=== PATIENT | male | born 1945 | race African-American/Black ===

== ENCOUNTER 2016-05-18 12:47 | Observation (INO) | payer OTHER ==
[2016-05-18] MEDS ORDERED: NS 1,000 ML IV ONE (12:51)
[2016-05-18] MEDS ORDERED: DIAZEPAM 5 MG TAB PO ONE (12:51)
[2016-05-18] MEDS ORDERED: diphenhydrAMINE 25 MG CAP PO ONE (12:51)
[2016-05-18] MEDS ORDERED: BACITRACIN IRRIGATION/NS 50,000 UNITS/1,000 ML BTL IRR ONE (12:51)
[2016-05-18] MEDS ORDERED: VANCOMYCIN HCL/NORMAL SALINE 250 ML IV ONE (12:53)
--- NOTE | 2016-05-18 13:08 | CPEKG ---
Heart Rate: 44 RR Interval: 1364 QRSD Interval: 90 QT Interval: 444 QTC Interval: 380 QRS [place]: -56 T Wave [place]: 46 EKG Severity - ABNORMAL ECG - EKG Impression: JUNCTIONAL ESCAPE RHYTHM EKG Impression: LEFT ANTERIOR FASCICULAR BLOCK EKG Impression: BORDERLINE T ABNORMALITIES, INFERIOR LEADS Electronically Signed By: Nagi Ryder 19-May-2016 09:26:46
[2016-05-18 13:22] LABS: % IMMATURE GRANULYOCYTES 0.6 % (0.0-1.1); ABSOLUTE IMMATURE GRANULOCYTES 0.05 10^3/uL (0.00-0.10); ADD DIFF? NO; ADD MORPH? NO; ADD SCAN? NO; ATYPICAL LYMPHOCYTE FLAG 90 (0-99); FRAGMENT RBC FLAG 0 (0-99); HEMATOCRIT 48.4 % (40.0-51.0); HEMOGLOBIN 15.9 g/dL (13.7-17.5); LEFT SHIFT FLG 0 (0-99); LIPEMIA HEMOLYSIS FLAG 80 (0-99); MEAN CELL HEMOGLOBIN 30.9 pg (27.9-34.1); MEAN CELL HEMOGLOBIN CONCENTR. 32.9 g/dL (32.4-36.7); MEAN CELL VOLUME 94.2 fL (81.5-99.8); MEAN PLATELET VOLUME 10.9 fL (8.7-11.7); PLATELET CLUMPS FLAG 10 (0-99); PLATELET COUNT 190 10^3/uL (150-400); RED BLOOD CELL COUNT 5.14 10^6/uL (4.40-6.38); RED CELL DISTRIBUTION WIDTH 13.1 % (11.5-15.2)
[2016-05-18 13:31] LABS: INR 0.98 (0.83-1.16); PROTIME(PATIENT) 12.9 SEC (12.0-15.0)
[2016-05-18 13:33] LABS: ANION GAP 10 mEq/L (8-16); CALCIUM 9.2 mg/dL (8.5-10.4); CARBON DIOXIDE 27 mEq/l (22-31); CHLORIDE 102 mEq/L (97-110); CREATININE 0.9 mg/dL (0.7-1.3); GLOMERULAR FILTRATION RATE > 60; GLUCOSE 127 mg/dL (70-100); POTASSIUM 4.4 mEq/L (3.5-5.2); SODIUM 139 mEq/L (134-144)
[2016-05-18] MEDS ORDERED: BUPIVACAINE 0.5% 30 ML SDV ONE (15:42)
[2016-05-18] MEDS ORDERED: LIDOCAINE 1% 30 ML SDV ONE (15:42)
[2016-05-18] MEDS ORDERED: MIDAZOLAM 2 MG/2 ML VIAL ONE ×2 (15:42→16:55)
[2016-05-18] MEDS ORDERED: fentaNYL 100 MCG/2 ML INJ ONE ×2 (15:42→16:57)
[2016-05-18] MEDS ORDERED: LIDO/EPI 1% **for epidural** 30 ML SDV ONE (15:42)
[2016-05-18] MEDS ORDERED: IOPAMIDOL (ISOVUE-300) 150 ML BTL IV ONE (15:44)
--- NOTE | 2016-05-18 16:41 | SUROPNOTE ---
[facility] Operative Report - Surgery Date of Procedure: 05/18/16 Indication: This patient is a 70 year old man, with a history of atrial flutter , presenting with sick sinus syndrome and episodes of sinus bradycardia, as low as 30 bpm. In addition, the patient had one episode of complete heart block documented on Holter monitor. Placement of permanent dual chamber pacemaker indicated secondary to sick sinus syndrome and complete heart block. Procedure Performed: 1. Placement of a dual chamber permanent pacemaker Description of procedure: Risks, benefits, and alternatives were discussed in detail. Informed consent was obtained. We discussed various options for devices. Patient was brought to the catheterization laboratory where a time out was performed. Left subclavian venography was performed via left arm IV, showing anatomically normal and widely patent left subclavian vein. Left anterior chest was sterilely prepped and draped. Patient received Vancomycin 1.5g intravenously. 2% lidocaine and 0.5 % Marcaine were utilized for local anesthetic. A skin incision was made with a # 10 blade and carried down to pectoralis fascia using Bovie, and bleeders were cauterized. Site for the pocket was anesthetized with lidocaine with epinephrine. The pocket was created by blunt dissection and packed with single Ray-Albertina antibiotic-soaked gauze. The patient was placed in Trendelenburg position. Then, under fluoroscopic guidance, the subclavian vein was punctured with an 18-gauge thin wall needle and cannulated with 0.035 J-tip guidewire. An 8-[place] peel-away introducing sheath was placed through which a second 0.035 J- tip guidewire was placed. Sheath was removed and flushed, placed back over the original guidewire, establishing dual guidewire access. Then, through the sheath , a single coil active fixation right ventricular pacing lead was placed. This was positioned in the right ventricular apex and secured in place with the active fixation helix. There was adequate pacing and sensing, and the lead was sutured in place with a suture sleeve and two separate 0 Ethibond sutures. Then , over the second guidewire, a 6-[place] peel-away introducing sheath was placed through which the active fixation right atrial lead was passed. Using a J curved stylette, this was placed in the area of the right atrial appendage and secured in place with the active fixation helix. There was adequate pacing and sensing, and the lead was suture in place with a suture sleeve and two separate 0 Ethibond sutures. Ray-Albertina gauze was moved from the pocket. The pocket was copiously irrigated with antibiotic solution and coated with D-Stat liquid hemostat. Any sites of oozing were cauterized. Pacemaker generator was brought to the field, leads were connected to proper head ports, and all set screws were tightened. Generator was placed in the pocket with the leads posterior, and secured in place with a single 0 Ethibond suture. The pocket was then closed with interrupted layers of 2-0 and 3-0 Vicryl suture and running 4-0 subcuticular Stratafix suture. Benzoin, Steri-Strips, and Opsite were placed. Hardware Implanted: Pacemaker is a Biotronik, Eluna 8 DR-T ProMRI, model 636960, serial [id number]. Right ventricular lead is a Biotronik Solia S 53, model 460262, serial [id number] , threshold 0.6V @ 0.40ms, R wave sensing 6.2mV, impedance 604Ohms. Right atrial lead is a Biotronik Solia S 45, model 485019, serial [id number], threshold 1.4V @ 0.40ms, P wave sensing 2.5mV, impedance 448Ohms. Portions of this report were documented by a center medical specialist. I have reviewed this report and agree with the documentation. Report scribed for Dr. Nghia Wilson. Report scribed by Nica Cordova.
[2016-05-18] MEDS ORDERED: HYDROCODONE/APAP 5/325 TAB PO PRN (17:41)
[2016-05-18] MEDS ORDERED: IBUPROFEN 200 MG TAB PO PRN (17:43)
--- NOTE | 2016-05-18 18:22 | CPEKG ---
Heart Rate: 60 RR Interval: 1000 P-R Interval: 232 QRSD Interval: 90 QT Interval: 428 QTC Interval: 428 QRS [place]: -61 T Wave [place]: 62 EKG Severity - ABNORMAL ECG - EKG Impression: ATRIAL-PACED RHYTHM EKG Impression: LEFT ANTERIOR FASCICULAR BLOCK EKG Impression: ATRIAL PACING IS NEW IN COMPARISON TO PRIOR ECG (JUNCTIONAL) Electronically Signed By: Nagi Ryder 19-May-2016 09:27:07
[2016-05-18] MEDS: OXYCODONE/APAP 5/325 TAB PO PRN (20:27)
[2016-05-18] MEDS ORDERED: NON-FORMULARY NEW DRUG (Simvastatin [Zocor] 40 MG) PO SCH (21:00)
[2016-05-18] MEDS ORDERED: PIOGLITAZONE HCL 15 MG TAB PO SCH (21:00)
[2016-05-18] MEDS ORDERED: ATORVASTATIN CALCIUM 20 MG TAB PO SCH (21:00)
[2016-05-18] MEDS ORDERED: glyBURIDE 5 MG TAB PO SCH (21:00)
[2016-05-19 04:32] LABS: % IMMATURE GRANULYOCYTES 0.5 % (0.0-1.1); ABSOLUTE IMMATURE GRANULOCYTES 0.03 10^3/uL (0.00-0.10); ADD DIFF? NO; ADD MORPH? NO; ADD SCAN? NO; ATYPICAL LYMPHOCYTE FLAG 20 (0-99); FRAGMENT RBC FLAG 0 (0-99); HEMATOCRIT 44.7 % (40.0-51.0); HEMOGLOBIN 14.7 g/dL (13.7-17.5); LEFT SHIFT FLG 0 (0-99); LIPEMIA HEMOLYSIS FLAG 80 (0-99); MEAN CELL HEMOGLOBIN 31.2 pg (27.9-34.1); MEAN CELL HEMOGLOBIN CONCENTR. 32.9 g/dL (32.4-36.7); MEAN CELL VOLUME 94.9 fL (81.5-99.8); MEAN PLATELET VOLUME 10.8 fL (8.7-11.7); PLATELET CLUMPS FLAG 0 (0-99); PLATELET COUNT 165 10^3/uL (150-400); RED BLOOD CELL COUNT 4.71 10^6/uL (4.40-6.38)
[2016-05-19 05:09] LABS: ANION GAP 8 mEq/L (8-16); CALCIUM 8.7 mg/dL (8.5-10.4); CARBON DIOXIDE 27 mEq/l (22-31); CHLORIDE 104 mEq/L (97-110); GLOMERULAR FILTRATION RATE > 60; GLUCOSE 82 mg/dL (70-100); POTASSIUM 4.5 mEq/L (3.5-5.2); SODIUM 139 mEq/L (134-144)
[2016-05-19] MEDS: OXYCODONE/APAP 5/325 TAB PO PRN (06:40)
[2016-05-19] MEDS ORDERED: TELMISARTAN 40 MG TAB PO SCH (08:00)
[2016-05-19] MEDS ORDERED: AMLODIPINE PO SCH (09:00)
[2016-05-19] MEDS ORDERED: amLODIPine BESYLATE 5 MG TAB PO SCH (09:00)
[2016-05-19] MEDS ORDERED: glyBURIDE 2.5 MG TAB PO SCH (09:00)
[2016-05-19] MEDS ORDERED: TELMISARTAN PO SCH (09:00)
--- NOTE | 2016-05-19 09:29 | CPEKG ---
Heart Rate: 60 RR Interval: 1000 P-R Interval: 240 QRSD Interval: 86 QT Interval: 412 QTC Interval: 412 QRS [place]: -68 T Wave [place]: 69 EKG Severity - ABNORMAL ECG - EKG Impression: ATRIAL-PACED RHYTHM EKG Impression: LEFT ANTERIOR FASCICULAR BLOCK Electronically Signed By: Nagi Ryder 19-May-2016 16:45:54
--- NOTE | 2016-05-19 10:27 | SOAPPROG ---
SOAP Progress Note Assessment/Plan: Assessment: Cardiology ([place]) 1. S/p dual chamber PPM implantation. Pacer is functioning normally. AV paced this am at 64 bpm. He received vanco iv prior to procedure which he says caused an itchy scalp. Otherwise procedure was uncomplicated. 2. Complete heart block / Mob[place] II. 3. History of paroxysmal atrial flutter. On Eliquis anticoagulation. 4. II/ systolic ejection murmur of unknown etiology. 5. HTN. 6. Hyperlipidemia. 7. Type 2 DM. 8. GRUPO treated w/ CPAP. 9. History of PCN allergy. Plan: 1. Rx for percocet #10, no RF. 2. Continue Eliquis tonight. 3. Continue all other home medications as directed. 4. CXR pending. 5. Discharge planned for later today. 6. Outpatient echocardiogram at soonest convenience. 05/19/16 10:34 Subjective: Patient has had moderate incisional pain overnight that has been controlled w/ Percocet. He denies any other symptoms. Left pectoral incision is well- approximated without any signs of inflammation or infection. Objective: Vital Signs Temp Pulse Resp BP Pulse Ox 37.2 C 60 16 131/75 H 98 05/19/16 07:11 05/19/16 07:11 05/19/16 07:11 05/19/16 07:11 05/19/16 07:11 Laboratory Results 05/19/16 03:57 05/19/16 03:57 05/18/16 05/19/16 05/20/16 05:59 05:59 05:59 Intake Total 260 Output Total 275 Balance -15 PT 12.9 SEC (12.0-15.0) 05/18/16 13:10 INR 0.98 (0.83-1.16) 05/18/16 13:10 - Time Spent With Patient Time Spent With Patient: 50 minutes spent coordinating care, physical exam, and documentation. - Pending Discharge Pending Discharge Within 24 Hours: Yes Pending Discharge Date: 05/20/16 Pending Discharge Time: 11:00 Physical Exam - Physical Exam General Appearance: WD/WN, alert, no apparent distress Respiratory: chest non-tender, lungs clear, normal breath sounds Cardiac/Chest: normal peripheral pulses, regular rate, rhythm, systolic murmur ( II/ ELISEO best heard in upper sternal borders) Peripheral Pulses: 2+: dorsalis-pedis (R), dorsalis-pedis (L) Abdomen: normal bowel sounds, non-tender, soft Extremities: No swelling Neuro/Psych: no motor/sensory deficits, alert, normal mood/affect, oriented x 3 ICD10 Worksheet Patient Problems: Problems Problem Status Onset Complete heart block Acute Status post cardiac pacemaker procedure Acute
[2016-05-19 11:19] VITALS: BP 129/72; PULSE 61; RESP 19; TEMP 98.1; O2SAT 99
== END 2016-05-19 14:06 | disposition home or self-care (01) ==
LOC: FCATH 12:47 → F2W 16:56 → UNDODISOB 05-19 13:01
PROVIDERS: ADMIT Internal Medicine Interventional Cardiology; ATTEND Internal Medicine Interventional Cardiology
PROC: 02HK3JZ Insertion of Pacemaker Lead into Right Ventricle, Percutaneous Approach (ICD-10-PCS; principal; 2016-05-18)
PROC: 02H63JZ Insertion of Pacemaker Lead into Right Atrium, Percutaneous Approach (ICD-10-PCS; principal; 2016-05-18)
PROC: 0JH806Z Insertion of Pacemaker, Dual Chamber into Abdomen Subcutaneous Tissue and Fascia, Open Approach (ICD-10-PCS; principal; 2016-05-18)
DX: I49.5 Sick sinus syndrome (principal); I44.2 Atrioventricular block, complete; I48.92 Unspecified atrial flutter; I48.91 Unspecified atrial fibrillation; I51.7 Cardiomegaly; I10 Essential (primary) hypertension; E78.5 Hyperlipidemia, unspecified; E11.9 Type 2 diabetes mellitus without complications; G47.33 Obstructive sleep apnea (adult) (pediatric); Z79.01 Long term (current) use of anticoagulants; Z88.0 Allergy status to penicillin
CPT/HCPCS: 33208; 71010; 71020; 93005; A4649; C1785; C1898; J1200; J2250; J3010; J3370; Q9967

== ENCOUNTER → 2016-11-04 | Outpatient (CLI) | payer OTHER | LOC: FIMAGING 17:27 | PROVIDERS: ATTEND Internal Medicine | DX: M25.461 Effusion, right knee (principal) ==

== ENCOUNTER → 2016-11-05 | Outpatient (CLI) | payer OTHER ==
[~2016-11-05] MED LIST: GADOBUTROL 10 ML VIAL IVP ONE
== END ==
LOC: FIMAGING 14:28
PROVIDERS: ATTEND Internal Medicine
DX: M79.651 Pain in right thigh (principal)
CPT/HCPCS: 73721; A9585

== ENCOUNTER → 2016-11-12 | Outpatient (CLI) | payer OTHER ==
[~2016-11-12] MED LIST changes: -GADOBUTROL 10 ML VIAL IVP ONE; +IOPAMIDOL (ISOVUE 370) 100 ML BTL IV ONE; +IOPAMIDOL (ISOVUE-300) 100 ML BTL ONE
== END ==
LOC: FIMAGING 09:42
PROVIDERS: ATTEND Internal Medicine
DX: I70.0 Atherosclerosis of aorta (principal); M79.604 Pain in right leg
CPT/HCPCS: 74177; Q9967

== ENCOUNTER 2017-06-15 11:17 | Observation (INO) | payer OTHER ==
[2017-06-15] MEDS ORDERED: BACITRACIN IRRIGATION/NS 50,000 UNITS/1,000 ML BTL IRR ONE (11:21)
[2017-06-15] MEDS ORDERED: NS 1,000 ML IV ONE (11:21)
--- NOTE | 2017-06-15 12:03 | CPEKG ---
Heart Rate: 62 RR Interval: 968 P-R Interval: 316 QRSD Interval: 142 QT Interval: 468 QTC Interval: 476 QRS [place]: -77 T Wave [place]: 94 EKG Severity - ABNORMAL ECG - EKG Impression: ATRIAL-VENTRICULAR DUAL-PACED COMPLEXES (intermittent A capture) EKG Impression: FIRST DEGREE AV BLOCK Electronically Signed By: Jun Chawla 15-Jun-2017 14:24:00
[2017-06-15 12:04] LABS: PLATELET COUNT 172 10^3/uL (150-400)
[2017-06-15 12:14] LABS: INR 0.94 (0.83-1.16); PROTIME(PATIENT) 12.8 SEC (12.0-15.0)
[2017-06-15] MEDS ORDERED: VANCOMYCIN 1 GM in NS 250 ML IV ONE (13:00)
[2017-06-15] MEDS ORDERED: MIDAZOLAM 2 MG/2 ML VIAL ONE (14:07)
[2017-06-15] MEDS ORDERED: fentaNYL 100 MCG/2 ML INJ ONE (14:07)
[2017-06-15] MEDS ORDERED: LIDOCAINE 1% 300 MG/30 ML SDV ONE (14:07)
[2017-06-15] MEDS ORDERED: IOPAMIDOL (ISOVUE-300) 100 ML BTL ONE (14:08)
[2017-06-15] MEDS ORDERED: BUPIVACAINE 0.5% 30 ML SDV ONE (14:08)
--- NOTE | 2017-06-15 14:21 | PDPROPOC ---
Sedation Plan of Care Sedation Plan of Care: vital signs stable, mental status noted, patient educated of risks, benefits, alternatives, patient can tolerate sedation ASA Classification: ASA 2 Planned drugs: fentanyl, midazolam Mallampati Score: Class 2 Mallampati Reference Image: Patient passed 3-3-2 rule?: Yes
--- NOTE | 2017-06-15 14:23 | PDGENHP ---
History & Physical Chief Complaint: afib, afl, dislodged ra lead Relevant Physical Exam: s1s2 irreg. cta. ao3 Cardiorespiratory Assessment: ra lead dislodged. plan to remove ra lead and implant new RA lead (AF is paroxysmal)
--- NOTE | 2017-06-15 16:56 | CPEKG ---
Heart Rate: 62 RR Interval: 968 P-R Interval: 258 QRSD Interval: 110 QT Interval: 408 QTC Interval: 415 P [place]: 139 QRS [place]: -51 T Wave [place]: -69 EKG Severity - ABNORMAL ECG - EKG Impression: VENTRICULAR-PACED COMPLEXES EKG Impression: Underlying AFL Electronically Signed By: Jun Chawla 15-Jun-2017 18:00:42
[2017-06-15] MEDS ORDERED: ACETAMINOPHEN 500 MG TAB PO PRN (16:59)
--- NOTE | 2017-06-15 16:59 | EPPROC ---
Electrophysiology Procedure Note: PROCEDURE PERFORMED: 1. Explant of old RA lead 2. Implant of new RA lead INDICATION: RA lead dislodged 9-12 months post initial implant AFL with pauses PROCEDURE NOTE: Patient presented to the cardiac catheterization laboratory in a fasting, post absorptive state . EP RN administered sedation. The left infraclavicular area was prepped and draped in the usual sterile fashion. Lidocaine plus bupivacaine was used for local anesthesia. Left subclavian venography was performed by injection of iodinated contrast into the left antecubital vein. Using a combination of blunt and sharp dissection and electrocautery, the dissection was carried down to the prepectoral fascia. The existing pacemaker pocket was opened. All bleeding was controlled with electrocautery. The pocket was packed with gauze soaked in antibiotic solution. Fluoroscopy was utilized during the entire procedure for venous access and placement of the leads. The RA lead was noted to be dislodged into mid RA. It was freed from subcutaneous tissue and suture sleeve. Active fixation screw was retracted. Lead was easily extracted by simple Extrathoracic axillary vein was accessed using modified Seldinger technique. An active fixation atrial lead was advanced into the right atrial appendage and screwed in place. The peel away sheath was removed. Pacing thresholds, sensing parameters and lead impedances were measured. There was no diaphragmatic stimulation at maximum output. The lead was sutured to the prepectoral fascia with 3 nonabsorbable sutures . The pocket was again inspected for any bleeding. The atrial lead was attached to the pacemaker securely. The pacemaker was inserted into the pocket and secured in place with a nonabsorbable suture. Fluoroscopy was performed in GUERRERO and BENINESE planes to verify right-sided placement of the leads. Also fluoroscopy of the pacemaker pocket was performed. The pacemaker pocket was closed in 3 layers with absorbable monocryl sutures and francisco javier. Appropriate dressing was applied. The patient left the cardiac catheterization laboratory in stable condition. Serial Numbers: 1. Device: Biotronik Eluna 8DRT proMRI SN [id number] 2. Atrial Lead: Biotronik Solia S45 SN [id number] 3. Ventricular Lead: Biotronik Solia S52 SN [id number] Stimulation Thresholds & Impedance Measurements: 1. Atrial Lead AFL P waves 1.3 mV 487 ohm 2. Ventricular Lead R 6.2 mV 0.6 V 0.4 ms 604 ohm [place] Pacing Parameters 1. Pacing mode: DDD-CLS 2. Lower rate: 60ppm 3. Upper tracking rate: 130 ppm 4. Upper sensor rate: 130 ppm Patient Problems: Problems Problem Status Onset Status post cardiac pacemaker procedure Acute Complete heart block Acute
[2017-06-15] MEDS: OXYCODONE/APAP 5/325 TAB PO PRN (21:03)
[2017-06-16] MEDS: OXYCODONE/APAP 5/325 TAB PO PRN (04:10)
[2017-06-16 04:38] LABS: PLATELET COUNT 173 10^3/uL (150-400)
[2017-06-16 07:24] VITALS: BP 119/69
[2017-06-16] MEDS ORDERED: APIXABAN 5 MG TAB PO SCH (09:00)
[2017-06-16] MEDS ORDERED: glyBURIDE 5 MG TAB PO SCH (09:00)
--- NOTE | 2017-06-16 09:10 | CPEKG ---
Heart Rate: 62 RR Interval: 968 P-R Interval: 214 QRSD Interval: 94 QT Interval: 392 QTC Interval: 398 P [place]: 0 QRS [place]: -55 T Wave [place]: -62 EKG Severity - ABNORMAL ECG - EKG Impression: VENTRICULAR-PACED COMPLEXES EKG Impression: LEFT ANTERIOR FASCICULAR BLOCK EKG Impression: NONSPECIFIC T ABNORMALITIES, DIFFUSE LEADS EKG Impression: Atrial flutter Electronically Signed By: Jun Chawla 16-Jun-2017 11:51:03
[2017-06-16] MEDS ORDERED: TELMISARTAN 40 MG TAB PO SCH (09:30)
[2017-06-16] MEDS ORDERED: amLODIPine BESYLATE 5 MG TAB PO SCH (09:30)
--- NOTE | 2017-06-16 10:06 | GDS ---
[f rep st] DISCHARGE SUMMARY DISCHARGE DIAGNOSIS: 1. Right atrial lead dislodgement status post explant of old right atrial lead and implant of a new right atrial lead. 2. Atrioventricular junctional bradycardia, status post pacemaker, Biotronik ,1 year ago. 3. Chronic atrial flutter, currently on Eliquis. 4. Diabetes. 5. Hypertension. 6. Hyperlipidemia. HOSPITAL COURSE: For a detailed H and P, please see prior dictation. Briefly, Julian is a 71-year-ol d male with a history of paroxysmal atrial flutter and symptomatic AV junctional bradycardia status p ost dual-chamber Biotronik pacemaker in 05/2016. He was found to have an abnormal recording indicati ng an atrial lead issue. He then had a chest x-ray, which showed atrial lead dislodgment. Ultimatel y, the patient was admitted to the hospital for elective atrial lead removal and implant of new right atrial lead. This was done by Dr. Jun Chawla on 06/15/2017. The procedure was uncomplicated. The , the patient denied any significant discomfort over his pacer site. He was monitore d on telemetry and remained in atrial flutter. His EKG showed atrial flutter with intermittent ventr icular pacing. His device was interrogated the day of discharge and was working properly. His chest x-ray was negative for pneumothorax and his right atrial lead was well positioned. PHYSICAL EXAMINATION: GENERAL: Patient appears in no acute distress. VITAL SIGNS: Blood pressure 119/69, heart rate 60, oxygen saturation of 93% on room air, afebrile. LUNGS: Clear to auscultation . No wheezes, rhonchi, or crackles auscultated. CARDIAC: Regular rate and rhythm without any signif icant murmurs, rubs, or gallops appreciated. CHEST WALL: His pacer site is clean and intact without any evidence of infection or hematoma. EXTREMITIES: No evidence of edema. DISCHARGE MEDICATIONS: His medications are unchanged except for he will hold metformin for 48 hours postprocedure. He will continue Zocor 40 mg at bedtime. Glyburide 5 mg twice daily, Actos 15 mg at bedtime, telmisartan/amlodipine 80/5 mg daily, metformin 500 mg twice daily. Again, this be held for 48 hours. Celebrex 200 mg daily. Eliquis 5 mg twice daily. PLAN: Julian is currently stable and ready for discharge home. He has been given pacer precautions. He is aware that he is to hold his metformin for 48 hours postprocedure. He is scheduled for a pace r interrogation and wound check on 06/22 at 1 p.m. Greater than 30 minutes was spent coordinating the patient's care today. /[id number]/MODL
[2017-06-16] MEDS ORDERED: NON-FORMULARY NEW DRUG (Simvastatin [Zocor] 40 MG) PO SCH (21:00)
[2017-06-16] MEDS ORDERED: ATORVASTATIN CALCIUM 20 MG TAB PO SCH (21:00)
[2017-06-16] MEDS ORDERED: PIOGLITAZONE HCL 15 MG TAB PO SCH (21:00)
== END 2017-06-16 12:01 | disposition home or self-care (01) ==
LOC: FCATH 11:17 → F2W 16:14
PROVIDERS: ADMIT Internal Medicine Cardiovascular Disease; ATTEND Internal Medicine Cardiovascular Disease
PROC: 02H63MZ Insertion of Cardiac Lead into Right Atrium, Percutaneous Approach (ICD-10-PCS; principal; 2017-06-15)
PROC: 02PA0MZ Removal of Cardiac Lead from Heart, Open Approach (ICD-10-PCS; principal; 2017-06-15)
DX: T82.120A Displacement of cardiac electrode, initial encounter (principal); I48.3 Typical atrial flutter; R00.1 Bradycardia, unspecified; Y71.2 Prosthetic and other implants, materials and accessory cardiovascular devices associated with adverse incidents; I44.4 Left anterior fascicular block; E11.9 Type 2 diabetes mellitus without complications; I10 Essential (primary) hypertension; E78.5 Hyperlipidemia, unspecified; G47.33 Obstructive sleep apnea (adult) (pediatric); Z79.01 Long term (current) use of anticoagulants; Z95.0 Presence of cardiac pacemaker; Z88.0 Allergy status to penicillin
CPT/HCPCS: 33216; 33235; 71045; 71046; 93005; C1898; J2250; J3010; J3370; Q9967

== ENCOUNTER → 2017-11-18 | Outpatient (CLI) | payer OTHER | LOC: BHLMT 13:00 | PROVIDERS: ATTEND Internal Medicine Cardiovascular Disease | DX: R93.1 Abnormal findings on diagnostic imaging of heart and coronary circulation (principal) | CPT/HCPCS: 78452; 93017; A9500; J2785 ==

== ENCOUNTER → 2017-12-07 | Outpatient (CLI) | payer OTHER | LOC: FIMAGING 09:39 | PROVIDERS: ATTEND Internal Medicine | DX: M51.36 Other intervertebral disc degeneration, lumbar region (principal); M48.061 Spinal stenosis, lumbar region without neurogenic claudication; M46.96 Unspecified inflammatory spondylopathy, lumbar region; M46.97 Unspecified inflammatory spondylopathy, lumbosacral region ==

== ENCOUNTER → 2017-12-08 | Outpatient (CLI) | payer OTHER | LOC: FIMAGING 08:40 | PROVIDERS: ATTEND Internal Medicine Cardiovascular Disease | DX: I70.0 Atherosclerosis of aorta (principal); R16.0 Hepatomegaly, not elsewhere classified; R93.1 Abnormal findings on diagnostic imaging of heart and coronary circulation ==